=== PATIENT | female | born 1960 | race Caucasian/White ===

== ENCOUNTER 2024-12-26 00:45 | Emergency (ER) | payer BC | END 2024-12-26 01:12 | disposition home or self-care (01) | LOC: JD.ED 00:45 | DX: I83.892 Varicose veins of left lower extremity with other complications (principal); Z91.018 Allergy to other foods; Z79.82 Long term (current) use of aspirin; Z79.899 Other long term (current) drug therapy | CPT/HCPCS: 99284 ==